=== PATIENT | female | born 1990 | race Caucasian/White ===

== ENCOUNTER → 2017-04-07 | Outpatient (CLI) | payer SELFPAY | LOC: COL.PUL 08:00 | DX: R06.02 Shortness of breath (principal); F17.200 Nicotine dependence, unspecified, uncomplicated ==

== ENCOUNTER → 2021-12-22 | Outpatient (CLI) | payer OTHER | LOC: MC.RAD 13:55 | DX: N60.01 Solitary cyst of right breast (principal) ==